=== PATIENT | female | born 1980 | race Caucasian/White ===

== ENCOUNTER 2016-09-21 01:46 | Emergency (ER) | payer MEDICAID, OTHER ==
[~2016-09-21] VITALS: Ht 162.6 cm; Wt 123.4 kg
[~2016-09-21 01:46] MED LIST: ACHD5005 PO; AMOX500C2 PO; ASPI-999 PO; BPR75T GT; BUPR100T6 PO; CALC-308 PO; DOCU100C37 PO; FLUO20CA25 PO; HCTZ12.5T PO; IBP800T PO; IBUP-1780 PO; LEVO750T24 PO; OXYC-202 PO; OXYC-465 PO; PREN-148 PO
[2016-09-21] MEDS ORDERED: FLUO40CA PO (01:57)
--- NOTE | 2016-09-21 02:18 | ED General ---
General Chief Complaint: General Problems/Pain Stated Complaint: SHOULDER PAIN VOMITING SORE THROAT Nursing Triage Note: BACK PAIN RADIATING TO JAW, VOMITTING X2 Nursing Sepsis Screen: No Definite Risk Source of Information: Patient History of Present Illness Time Seen by Provider: 01:58 Initial Comments PT ARRIVES VIA POV FROM HOME STATES WOKE UP AT MIDNIGHT WITH PAIN IN HER BACK, BETWEEN HER SHOULDER BLADES. STATES PAIN WOKE HER UP PAIN WAS 6/10 AT WORST, AND NOW IS 3/10, BUT IS CONSTANT STATES SHE HAS VOMITED X 2-ONE RIGHT AFTER THE OTHER, NO NAUSEA NOW PAIN IS NOW ALSO IN RIGHT LATERAL NECK AREA SINCE SHE VOMITED STATES SHE WAS SHORT OF BREATH AFTER SHE VOMITED, BUT NOT NOW STATES HER HEART FELT LIKE IT WAS RACING, BUT NOT NOW STATES SHE HAD BURNING IN HER THROAT AFTER SHE VOMITED BUT NOT NOW SYMPTOMS WORSE WHEN LAYING FLAT, NOTHING IMPROVES PAIN HAS NOT TAKEN ANYTHING FOR PAIN NO FEVER NO COUGH NO SWELLING IN LEGS/ FEET OR PAIN IN CALVES NO CHEST PAIN NO ABDOMINAL PAIN NO URINARY SYMPTOMS LMP 09/15/09/28--NORMAL . S/P BTL STATES ON WEDNESDAY SHE DID HAVE GI ILLNESS WITH FEVER AND NAUSEA/VOMITING, THAT LASTED 24 HOURS AND HAS BEEN FINE SINCE THEN FELT FINE ALL DAY TODAY AND WAS FINE WHEN SHE WENT TO BED NO HISTORY OF SIMILAR PCP: [facility], EMILY FONTAINE Allergies and Home Medications Allergies Coded Allergies: No Known Drug Allergies (Unverified , 01/30/15) Home Medications Fluoxetine HCl 40 Mg Capsule, 1 CAP PO UD, #30 (Reported) Constitutional: No chills, No diaphoresis, No dizziness, No fever EENTM: other (RIGHT JAW AND LATERAL NECK PAIN ), No throat pain Respiratory: see HPI, No cough, short of breath Cardiovascular: see HPI, No chest pain, No edema, palpitations, No syncope, No vascular heart diseas Gastrointestinal: see HPI, No abdominal pain, No constipation, No diarrhea, nausea, vomiting Genitourinary: no symptoms reported Musculoskeletal: see HPI, back pain, neck pain Skin: no symptoms reported Psychiatric/Neurological: No Symptoms Reported Hematologic/Lymphatic: No Symptoms Reported Immunological/Allergic: no symptoms reported Past Hakxruy-Lvabnh-Hfbrwp Hx Patient Social History Alcohol Use: Denies Use Recreational Drug Use: No Smoking Status: Current Everyday Smoker (1 PPD--TRYING TO QUIT-1 CIGARETTE A DAY FOR THE LAST WEEK, PER PT ON 09/21/16) Type Used: Cigarettes 2nd Hand Smoke Exposure: Yes Recent Foreign Travel: No Contact w/Someone Who Travel: No Recent Infectious Disease Expo: No Recent Hopitalizations: No Immunizations Up To Date Tetanus Booster (TDap): More than 5yrs PED Vaccines UTD: Yes Date of Influenza Vaccine: Mar 28, 2014 Seasonal Allergies Seasonal Allergies: No Surgeries HX Surgeries: Yes (POLYP REMOVED FROM UTERUS) Surgeries: Tubal Ligation Respiratory Hx Respiratory Disorders: No Cardiovascular Hx Cardiac Disorders: Yes Cardiac Disorders: Hypertension Neurological Hx Neurological Disorders: No Reproductive System : No Hx Reproductive Disorders: Yes (UTERINE MASS/polyp removal) Sexually Transmitted Disease: No HIV/AIDS: No Female Reproductive Disorders: Ovarian Cyst Genitourinary Hx Genitourinary Disorders: No Gastrointestinal Hx Gastrointestinal Disorders: Yes Gastrointestinal Disorders: Gastroesophageal Reflux Musculoskeletal Hx Musculoskeletal Disorders: No Endocrine Hx Endocrine Disorders: No HEENT HX ENT Disorders: No Loss of Vision: Bilateral Cancer Hx Cancer: No Psychosocial Hx Psychiatric Problems: Yes Behavioral Health Disorders: Anxiety, Depression Integumentary HX Skin/Integumentary Disorder: No Blood Transfusions Hx Blood Disorders: No Adverse Reaction to a Blood Tr: No Family Medical History Significant Family History: Renal Disease Family Medial History: FH: hepatic cirrhosis 19 MOTHER Hepatitis C 19 MOTHER Hypertension 19 MOTHER Physical Exam Vital Signs Vital Sign - Last 12Hours 09/21/16 01:57 Temp 97.0 Pulse 88 Resp 18 B/P (MAP) 158/111 Pulse Ox 97 O2 Delivery Room Air Capillary Refill : Less Than 3 Seconds General Appearance: No Apparent Distress, WD/WN, Obese HEENT: PERRL/EOMI Neck: Full Range of Motion, Normal Inspection, Non Tender, Supple, No Carotid Bruit, No JVD Respiratory: Chest Non Tender, Normal Breath Sounds, No Accessory Muscle Use, No Respiratory Distress Cardiovascular: Regular Rate, Rhythm, No Edema, No JVD, No Murmur, Normal Peripheral Pulses Gastrointestinal: Normal Bowel Sounds, No Organomegaly, No Pulsatile Mass, Non Tender, Soft Back: Normal Inspection, No CVA Tenderness, No Vertebral Tenderness Extremity: Normal Capillary Refill, Normal Inspection, Normal Range of Motion, Non Tender, No Calf Tenderness, No Pedal Edema Neurologic/Psychiatric: Alert, Oriented x3, No Motor/Sensory Deficits, Normal Mood/Affect, bottom turner II-XII Norm as Tested Skin: Normal Color, Warm/Dry, No Rash Progress/Results/Core Measures Results/Orders Lab Results Laboratory Tests Test 09/21/16 02:15 Range/Units White Blood Count 8.8 4.3-11.0 10^3/uL Red Blood Count 4.02 L 4.35-5.85 10^6/uL Hemoglobin 12.5 11.5-16.0 G/DL Hematocrit 37 35-52 % Mean Corpuscular Volume 91 80-99 FL Mean Corpuscular Hemoglobin 31 25-34 PG Mean Corpuscular Hemoglobin Concent 34 32-36 G/DL Red Cell Distribution Width 12.3 10.0-14.5 % Platelet Count 274 130-400 10^3/uL Mean Platelet Volume 9.8 7.4-10.4 FL Neutrophils (%) (Auto) 63 42-75 % Lymphocytes (%) (Auto) 30 12-44 % Monocytes (%) (Auto) 6 0-12 % Eosinophils (%) (Auto) 1 0-10 % Basophils (%) (Auto) 0 0-10 % Neutrophils # (Auto) 5.6 1.8-7.8 X 10^3 Lymphocytes # (Auto) 2.7 1.0-4.0 X 10^3 Monocytes # (Auto) 0.5 0.0-1.0 X 10^3 Eosinophils # (Auto) 0.1 0.0-0.3 10^3/uL Basophils # (Auto) 0.0 0.0-0.1 10^3/uL Prothrombin Time 12.1 L 12.2-14.7 SEC INR Comment 0.9 0.8-1.4 Activated Partial Thromboplast Time 28 24-35 SEC Sodium Level 139 135-145 MMOL/L Potassium Level 3.8 3.6-5.0 MMOL/L Chloride Level 106 98-107 MMOL/L Carbon Dioxide Level 23 21-32 MMOL/L Anion Gap 10 5-14 MMOL/L Blood Urea Nitrogen 9 7-18 MG/DL Creatinine 0.75 0.60-1.30 MG/DL Estimat Glomerular Filtration Rate > 60 BUN/Creatinine Ratio 12 Glucose Level 113 H 70-105 MG/DL Calcium Level 8.8 8.5-10.1 MG/DL Magnesium Level 1.9 1.8-2.4 MG/DL Total Bilirubin 0.2 0.1-1.0 MG/DL Aspartate Amino Transf (AST/SGOT) 26 5-34 U/L Alanine Aminotransferase (ALT/SGPT) 60 H 0-55 U/L Alkaline Phosphatase 46 40-136 U/L Total Creatine Kinase 76 29-168 U/L Creatine Kinase MB 0.9 <6.6 NG/ML Troponin I < 0.30 <0.30 NG/ML Total Protein 6.5 6.4-8.2 G/DL Albumin 3.7 3.2-4.5 G/DL Amylase Level 43 25-125 U/L Lipase 15 8-78 U/L Serum Test, Qualitative NEGATIVE NEGATIVE My Orders Orders - TIFFANY VILLAR DO Amylase (09/21/16 02:08) Cbc With Automated Diff (09/21/16 02:08) Comprehensive Metabolic Panel (09/21/16 02:08) Creatine Kinase (09/21/16 02:08) Creatine Kinase Mb (09/21/16 02:08) Lipase (09/21/16 02:08) Partial Thromboplastin Time (09/21/16 02:08) Protime With Inr (09/21/16 02:08) Troponin I (09/21/16 02:08) Chest 1 View, Ap/Pa Only (09/21/16 02:08) O2 (09/21/16 02:08) Ekg Tracing (09/21/16 02:08) BNP (09/21/16 02:08) Monitor-Rhythm Ecg Trace Only (09/21/16 02:08) Saline Lock/Iv-Start (09/21/16 02:08) Hcg,Qualitative Serum (09/21/16 02:08) Magnesium (09/21/16 02:08) Ketorolac Injection (Toradol Injection) (09/21/16 03:15) Famotidine Tablet (Pepcid Tablet) (09/21/16 03:15) Medications Given in ED Current Medications Medications Dose Ordered Sig/Daniela Route Start Time Stop Time Status Last Admin Dose Admin Famotidine 40 mg ONCE ONCE PO 09/21/16 03:15 09/21/16 03:16 DC 09/21/16 03:14 40 MG Vital Signs/I&O Vital Sign - Last 12Hours 09/21/16 01:57 Temp 97.0 Pulse 88 Resp 18 B/P (MAP) 158/111 Pulse Ox 97 O2 Delivery Room Air Blood Pressure Mean: 127 Progress Note : Progress Note PAIN RESOLVED ON IT'S OWN DURING ER STAY AND HAS NO SYMPTOMS OF ANY KIND PT NOW STATES IT FEELS LIKE WHEN SHE HAS HAD ACID REFLUX, BUT HAS NOT BEEN THIS BAD OR LASTED THIS LONG PT HAS PEPCID AT HOME, BUT HAS NOT TAKEN ANY FOR QUITE SOME TIME. ADVISED PT TO START TAKING DAILY PT FEELS COMFORTABLE GOING HOME, AND WANTS TO GO HOME. ECG Initial ECG Impression Time: 02:18 Initial ECG Rate: 74 Initial ECG Rhythm: Normal Sinus Initial ECG Comparisson: No Previous ECG Available Diagnostic Imaging Comments CXR--NO ACUTE PROCESS, PENDING RADIOLOGIST REVIEW Reviewed: Reviewed by Me Departure Impression Impression: Primary Impression: GERD (gastroesophageal reflux disease) Additional Impression: Mid back pain Disposition: 01 HOME, SELF-CARE Condition: Improved Departure-Patient Inst. Referrals: [facility] (PCP/Family) Primary Care Physician Patient Instructions: Acid Reflux (Gastroesophageal Reflux Disease), Adult (DC) , Upper Back Pain (DC) Add. Discharge Instructions: TAKE PEPCID DAILY ELEVATE HEAD OF BED 30-45 DEGREES FOLLOW UP WITH YOUR DR IN 1-2 DAYS FOR RECHECK RETURN TO ER IF WORSE All discharge instructions reviewed with patient and/or family. Voiced understanding. TIFFANY VILLAR DO Sep 21, 2016 02:17
[2016-09-21 02:24] LABS: BASOPHILS % (AUTO) 0 % (0-10); EOSINOPHILS # (AUTO) 0.1 10^3/uL (0.0-0.3); EOSINOPHILS % (AUTO) 1 % (0-10); LYMPHOCYTES # (AUTO) 2.7 X 10^3 (1.0-4.0); LYMPHOCYTES % (AUTO) 30 % (12-44); MEAN CORPUSCULAR HEMOGLOBIN 31 PG (25-34); MEAN CORPUSCULAR HGB CONC 34 G/DL (32-36); MEAN CORPUSCULAR VOLUME 91 FL (80-99); MEAN PLATELET VOLUME 9.8 FL (7.4-10.4); MONOCYTES # (AUTO) 0.5 X 10^3 (0.0-1.0); MONOCYTES % (AUTO) 6 % (0-12); NEUTROPHILS # (AUTO) 5.6 X 10^3 (1.8-7.8); NEUTROPHILS % (AUTO) 63 % (42-75); PLATELET COUNT 274 10^3/uL (130-400); RED BLOOD COUNT 4.02 10^6/uL (4.35-5.85); RED CELL DISTRIBUTION WIDTH 12.3 % (10.0-14.5); WHITE BLOOD COUNT 8.8 10^3/uL (4.3-11.0)
[2016-09-21 02:31] LABS: INR 0.9 (0.8-1.4); PROTHROMBIN TIME PATIENT 12.1 SEC (12.2-14.7)
[2016-09-21 02:43] LABS: ALANINE AMINOTRANSFERASE 60 U/L (0-55); ALBUMIN 3.7 G/DL (3.2-4.5); AMYLASE 43 U/L (25-125); ANION GAP 10 MMOL/L (5-14); ASPARTATE AMINO TRANSFERASE 26 U/L (5-34); BILIRUBIN,TOTAL 0.2 MG/DL (0.1-1.0); BLOOD UREA NITROGEN 9 MG/DL (7-18); BUN/CREATININE RATIO 12; CALCIUM 8.8 MG/DL (8.5-10.1); CARBON DIOXIDE 23 MMOL/L (21-32); CHLORIDE 106 MMOL/L (98-107); CREATINE KINASE 76 U/L (29-168); CREATININE SERUM 0.75 MG/DL (0.60-1.30); GFR ESTIMATED > 60; GLUCOSE 113 MG/DL (70-105); LIPASE 15 U/L (8-78); MAGNESIUM 1.9 MG/DL (1.8-2.4); POTASSIUM 3.8 MMOL/L (3.6-5.0); SODIUM 139 MMOL/L (135-145); TOTAL PROTEIN 6.5 G/DL (6.4-8.2)
[2016-09-21 02:49] LABS: TROPONIN I < 0.30 NG/ML (<0.30)
[2016-09-21] MEDS ORDERED: KETOROLAC 30 MG/ML VIAL IVP ONE (03:15)
[2016-09-21] MEDS ORDERED: FAMOTIDINE 20 MG (PEPCID) TABLET PO ONE (03:15)
[2016-09-21 03:24] VITALS: BP 137/101
[2016-09-21] MEDS ORDERED: cefTRIAXone INJECTION 1,000 MG in NS (IVPB) 50 ML IV SCH (04:30)
[2016-09-21] MEDS ORDERED: 1/2 NS IV SOLUTION 1,000 ML IV SCH (04:30)
[2016-09-21] MEDS ORDERED: inSUlin (REGULAR) HUMAN 1 UNIT/0.01 ML (CHARGE PER UNIT) SC SCH (06:00)
--- NOTE | 2016-09-21 06:45 | Diagnostic Imaging Report ---
INDICATION: Shoulder pain, vomiting, sore throat. FINDINGS: The lungs are clear. The heart and vessels normal. There is no effusion or pneumothorax. No free air beneath the diaphragms. IMPRESSION: Negative. Dictated by: Dictated on workstation # [id number]
== END 2016-09-21 03:19 | disposition home or self-care (01) ==
LOC: EDUNIT# 01:46 → ER 01:50
DX: K21.9 Gastro-esophageal reflux disease without esophagitis (principal); R11.10 Vomiting, unspecified; M54.9 Dorsalgia, unspecified; F17.210 Nicotine dependence, cigarettes, uncomplicated
CPT/HCPCS: 36415; 71010; 80053; 82150; 82550; 82553; 83690; 83735; 83880; 84484; 84703; 85025; 85610; 85730; 93005; 93041

== ENCOUNTER 2016-12-27 10:01 | Emergency (ER) | payer OTHER ==
[~2016-12-27] VITALS: Ht 162.6 cm; Wt 111.6 kg
[~2016-12-27 10:01] MED LIST changes: +FLUO40CA PO
--- NOTE | 2016-12-27 10:27 | ED Lower Extremity ---
General Stated Complaint: R FOOT INJ Source: patient, family Exam Limitations: no limitations History of Present Illness Time seen by provider: 10:25 Initial Comments This 36-year-old white female presents after sustaining an injury to her right foot when she tripped over a baby gate last evening. She complained of pain and swelling over the dorsum of her right forefoot. She denies loss of sensation or range of motion of the affected extremity. She has been limited in her weightbearing due to the injury. She denies other injury or accident. She denies previous significant injury to the right foot. The pain is severe and sharp. No abrasion or skin disruption occurred. Allergies and Home Medications Allergies Coded Allergies: No Known Drug Allergies (Unverified , 01/30/15) Home Medications Fluoxetine HCl 40 Mg Capsule, 1 CAP PO UD, #30 (Reported) Constitutional: No chills EENTM: no symptoms reported Respiratory: No cough Cardiovascular: No chest pain Gastrointestinal: No abdominal pain, No nausea, No vomiting Genitourinary: No dysuria, No frequency Musculoskeletal: No back pain, joint pain Skin: No change in color, No rash Psychiatric/Neurological: No Symptoms Reported Past Nrqvudc-Aaypyt-Jjrjvh Hx Patient Social History Type Used: Cigarettes 2nd Hand Smoke Exposure: Yes Recent Foreign Travel: No Contact w/Someone Who Travel: No Recent Hopitalizations: No Immunizations Up To Date Tetanus Booster (TDap): More than 5yrs PED Vaccines UTD: Yes Date of Influenza Vaccine: Mar 28, 2014 Seasonal Allergies Seasonal Allergies: No Surgeries HX Surgeries: Yes (POLYP REMOVED FROM UTERUS) Surgeries: Tubal Ligation Respiratory Hx Respiratory Disorders: No Cardiovascular Hx Cardiac Disorders: Yes Cardiac Disorders: Hypertension Neurological Hx Neurological Disorders: No Reproductive System Hx Reproductive Disorders: Yes (UTERINE MASS/polyp removal) Sexually Transmitted Disease: No HIV/AIDS: No Female Reproductive Disorders: Ovarian Cyst Genitourinary Hx Genitourinary Disorders: No Gastrointestinal Hx Gastrointestinal Disorders: Yes Gastrointestinal Disorders: Gastroesophageal Reflux Musculoskeletal Hx Musculoskeletal Disorders: No Endocrine Hx Endocrine Disorders: No HEENT HX ENT Disorders: No Loss of Vision: Bilateral Cancer Hx Cancer: No Psychosocial Hx Psychiatric Problems: Yes Behavioral Health Disorders: Anxiety, Depression Integumentary HX Skin/Integumentary Disorder: No Blood Transfusions Hx Blood Disorders: No Adverse Reaction to a Blood Tr: No Reviewed Nursing Assessment Reviewed/Agree w Nursing PMH: Yes Family Medical History Significant Family History: Renal Disease Family Medial History: FH: hepatic cirrhosis 19 MOTHER Hepatitis C 19 MOTHER Hypertension 19 MOTHER Physical Exam Vital Signs Vital Sign - Last 12Hours 12/27/16 10:27 Temp 98.8 Pulse 102 Resp 18 B/P (MAP) 173/106 Pulse Ox 98 O2 Delivery Room Air Capillary Refill : General Appearance: WD/WN, moderate distress HEENT: normal ENT inspection Neck: normal inspection Cardiovascular: regular rate, rhythm, no murmur Respiratory: lungs clear Gastrointestinal: soft Feet: right foot pain, right foot soft tissue tenderness, right foot swelling Neurologic/Tendon: normal sensation, normal motor functions, normal tendon functions Neurologic/Psychiatric: no motor/sensory deficits, alert, normal mood/affect Skin: normal color, warm/dry Progress/Results/Core Measures Results/Orders My Orders Orders - RIA ELIZABETH MD Hydrocodone/Apap 5/325 Tablet (Lortab 5 (12/27/16 10:30) Foot, Right, 3 View (12/27/16 10:24) Manjinder Bandage (12/27/16 11:07) Post-Op Shoe (12/27/16 11:07) Crutches (12/27/16 11:07) Medications Given in ED Current Medications Medications Dose Ordered Sig/Daniela Route Start Time Stop Time Status Last Admin Dose Admin Acetaminophen/ Hydrocodone Bitart 2 tab ONCE ONCE PO 12/27/16 10:30 12/27/16 10:31 DC 12/27/16 10:35 2 TAB Vital Signs/I&O Vital Sign - Last 12Hours 12/27/16 10:27 Temp 98.8 Pulse 102 Resp 18 B/P (MAP) 173/106 Pulse Ox 98 O2 Delivery Room Air Progress Note : Time: 11:16 Progress Note The patient's right foot x-ray failed to demonstrate evidence of fracture or dislocation. Patient was given 5 mg Vicodin orally in the emergency department with only moderate improvement in her discomfort. An Manjinder wrap and postoperative shoe was placed. Patient was given crutches initially for nonweightbearing. Departure Impression Impression: Primary Impression: Sprain and strain of foot Disposition: 01 HOME, SELF-CARE Condition: Improved Departure-Patient Inst. Decision time for Depature: 11:17 Referrals: J LUIS ASCENCIO MD (PCP/Family) Primary Care Physician Patient Instructions: Sprain (DC) Add. Discharge Instructions: Percocet for pain. Ice and elevation. Manjinder wrap postop shoe and crutches. Close follow-up with her doctor. Come back if any problems. RIA ELIZABETH MD Dec 27, 2016 10:27
[2016-12-27] MEDS ORDERED: HYDROcodone/APAP 5 MG/325 MG (LORTAB) TAB PO ONE (10:30)
--- NOTE | 2016-12-27 10:57 | Diagnostic Imaging Report ---
INDICATION: Foot pain and trauma COMPARISON: None FINDINGS: 3 views of the right foot demonstrate no fracture or dislocation. Articular surfaces are normal. There is no bony erosion or foreign body. IMPRESSION: Negative right foot. Dictated by: Dictated on workstation # [id number]
[2016-12-27 11:28] VITALS: BP 173/106
== END 2016-12-27 11:29 | disposition home or self-care (01) ==
LOC: EDUNIT# 10:01 → ER 10:02
DX: S93.601A Unspecified sprain of right foot, initial encounter (principal); S96.911A Strain of unspecified muscle and tendon at ankle and foot level, right foot, initial encounter; F41.9 Anxiety disorder, unspecified; F32.9 Major depressive disorder, single episode, unspecified; K21.9 Gastro-esophageal reflux disease without esophagitis; Z77.22 Contact with and (suspected) exposure to environmental tobacco smoke (acute) (chronic); W18.49XA Other slipping, tripping and stumbling without falling, initial encounter
CPT/HCPCS: 73630; 99283

== ENCOUNTER → 2018-11-21 | Outpatient (CLI) | payer BC, OTHER ==
[~2018-11-21] MED LIST changes: -OXYC-202 PO; +OXYC1TAB12 PO
--- NOTE | 2018-11-22 12:10 | Diagnostic Imaging Report ---
EXAMINATION: Digital mammogram bilateral screening with 3D tomosynthesis and CAD. INDICATION: Screening. COMPARISON: This is the patient's baseline study. PERSONAL HISTORY: At this time, there are no current complaints. FINDINGS: The fibroglandular tissue in both breasts is heterogeneously dense. This does limit the sensitivity of this exam. There is an area of asymmetric fibroglandular tissue in the 12 o'clock position of the right breast. On the xcc view of the left breast deep in the lateral aspect of the breast there appear to be a few microcalcifications. These calcifications are partially visualized on the MLO view. I do suspect that these calcifications are benign. Even so, as there are no previous exams available for comparison, I would recommend that a compression/magnification view of this area be obtained in the ML and CC projections for further study. There is no primary or secondary sign of malignancy noted otherwise. IMPRESSION: Additional mammographic views of the left breast would be recommended for further study. ACR BI-RADS Category 0: Incomplete. (Needs additional imaging evaluation). Result letter will be mailed to the patient. Note: At least 10% of breast cancer is not imaged by mammography. Dictated by: Dictated on workstation # [id number]
== END ==
LOC: RAD 08:03
PROVIDERS: ATTEND Obstetrics & Gynecology
DX: Z12.31 Encounter for screening mammogram for malignant neoplasm of breast (principal)
CPT/HCPCS: 77067

== ENCOUNTER 2020-10-17 06:31 | Day surgery (SDC) | payer BC ==
[~2020-10-17] VITALS: Ht 162 cm; Wt 131.8 kg
[2020-10-17] VITALS (11 sets, daily range): BP systolic 122–141; BP diastolic 68–102
[~2020-10-17 06:31] MED LIST changes: +ARIP5TAB12 PO; -OXYC-465 PO; +OXYC-556 PO; +PROP20TA5 PO; +SERT50TA2 PO
--- NOTE | 2020-10-17 07:01 | Progress Note-Pre Operative ---
Pre-Operative Progress Note H&P Reviewed The H&P was reviewed, patient examined and no changes noted. Date Seen by Provider: October 17, 2020 Time Seen by Provider: 06:30 Date H&P Reviewed: October 17, 2020 Time H&P Reviewed: 06:30 Pre-Operative Diagnosis: T/A Hyper with UAO, Bilat BETHANIE, Nasopseptal Perforation FER MIXON MD October 17, 2020 07:01
[2020-10-17] MEDS ORDERED: MIDAZOLAM 2 MG/2 ML (VERSED) VIAL ONE (07:03)
[2020-10-17] MEDS: LACTATED RINGERS 1,000 ML IV PRN ×2 (07:13→09:00)
[2020-10-17] MEDS ORDERED: MIDAZOLAM 2 MG/2 ML (VERSED) VIAL IV ONE (07:15)
[2020-10-17 07:16] LABS: BASOPHILS % (AUTO) 1 % (0-10); EOSINOPHILS # (AUTO) 0.2 10^3/uL (0.0-0.3); EOSINOPHILS % (AUTO) 3 % (0-10); HEMATOCRIT 40 % (35-52); HEMOGLOBIN 13.3 g/dL (11.5-16.0); LYMPHOCYTES # (AUTO) 2.6 10^3/uL (1.0-4.0); LYMPHOCYTES % (AUTO) 45 % (12-44); MEAN CORPUSCULAR HEMOGLOBIN 31 pg (25-34); MEAN CORPUSCULAR HGB CONC 33 g/dL (32-36); MEAN CORPUSCULAR VOLUME 94 fL (80-99); MEAN PLATELET VOLUME 10.4 fL (9.0-12.2); MONOCYTES # (AUTO) 0.3 10^3/uL (0.0-1.0); MONOCYTES % (AUTO) 5 % (0-12); NEUTROPHILS # (AUTO) 2.7 10^3/uL (1.8-7.8); NEUTROPHILS % (AUTO) 46 % (42-75); PLATELET COUNT 296 10^3/uL (130-400); WHITE BLOOD COUNT 5.8 10^3/uL (4.3-11.0)
[2020-10-17] MEDS ORDERED: LIDOCAINE PF 2% 5 ML (XYLOCAINE) VIAL ONE (07:21)
[2020-10-17] MEDS ORDERED: ONDANSETRON 4 MG/2 ML (SDV) Z0FRAN ONE (07:21)
[2020-10-17] MEDS ORDERED: ROCURONIUM 10 MG/ML 5 ML SYRINGE IV ONE (07:21)
[2020-10-17] MEDS ORDERED: proPOfol 200 MG/20 ML (DIPRIVAN) VIAL IV ONE (07:21)
[2020-10-17] MEDS ORDERED: LIDOCAINE/EPI 1%-1:100,000 (XYLOCAINE) 20ML ONE (07:22)
[2020-10-17] MEDS ORDERED: COCAINE HCL 4% 2 ML SYR ONE (07:22)
[2020-10-17] MEDS ORDERED: PHENYLEPHRINE 0.5% NASAL SPR (NEO-SYNEPHRINE) REG ONE (07:22)
[2020-10-17] MEDS ORDERED: fentaNYL INJ 100 MCG/2 ML AMP ONE ×2 (07:22→08:16)
[2020-10-17] MEDS ORDERED: BSS 15 ML ONE (07:23)
[2020-10-17] MEDS ORDERED: SEVOFLURANE (ULTANE) 15 ML INHAL SOLN ONE (07:24)
[2020-10-17 07:33] LABS: CHLORIDE 107 MMOL/L (98-107); POTASSIUM 4.5 MMOL/L (3.6-5.0); SODIUM 141 MMOL/L (135-145)
[2020-10-17 07:34] LABS: CALCIUM 9.1 MG/DL (8.5-10.1)
[2020-10-17 07:35] LABS: GLUCOSE 98 MG/DL (70-105)
[2020-10-17 07:36] LABS: CARBON DIOXIDE 24 MMOL/L (21-32)
[2020-10-17 07:38] LABS: CREATININE SERUM 0.84 MG/DL (0.60-1.30); GFR ESTIMATED > 60
[2020-10-17 07:39] LABS: BUN/CREATININE RATIO 13
[2020-10-17] MEDS ORDERED: NEOSTIGMINE 3 MG/3 ML VIAL ONE (07:47)
[2020-10-17] MEDS ORDERED: GLYCOPYRROLATE 0.2 MG/ML (ROBINUL) 2 ML VIAL ONE ×2 (07:47→08:25)
--- NOTE | 2020-10-17 08:44 | Progress Note-Post Operative ---
Post-Operative Progess Note Surgeon (s)/Guard Supervisor (s) Surgeon FER MIXON MD Guard Supervisor n/a Pre-Operative Diagnosis T/A Hyper with UAO, Bilat BETHANIE, Nasopseptal Perforation Post-Operative Diagnosis same Post-Op Procedure Note Date of Procedure: October 17, 2020 Name of Procedure Performed: Tonsillectomy, BMT, Endoscopic Biopsy of Septal Perforation Description & Findings Description and Findings: n/a Anesthesia Type get Estimated Blood Loss minimal Packing none. Specimen(s) collected/removed naso septal biopsies tonsils FER MIXON MD October 17, 2020 08:44
[2020-10-17] MEDS ORDERED: HYDROcodone/APAP 7.5MG-325 MG/15 ML (LORTAB) UDC PO PRN (08:45)
[2020-10-17] MEDS ORDERED: NS IV 1000 ML 1,000 ML IV SCH (08:45)
[2020-10-17] MEDS ORDERED: APAP 325 MG/10.15 ML LIQ (TYLENOL) UDC PO PRN (08:45)
--- NOTE | 2020-10-17 08:50 | Anesthesia-General Post-Op ---
General Patient Condition Mental Status/LOC: Same as Preop Cardiovascular: Satisfactory Nausea/Vomiting: Absent Respiratory: Satisfactory Pain: Controlled Complications: Absent Post Op Complications Complications None Follow Up Care/Instructions Patient Instructions None needed. Anesthesia/Patient Condition Patient Condition Patient is doing well, no complaints, stable vital signs, no apparent adverse anesthesia problems. No complications reported per nursing. AFSHIN WOLFF CRNA October 17, 2020 08:50
[2020-10-17] MEDS ORDERED: morphine INJ 10 MG/ML 1ML (SYR OR VIAL) IVP ONE (09:00)
[2020-10-17] MEDS ORDERED: MEPERIDINE (DEMEROL) INJ 50 MG/ML IVP ONE (09:00)
[2020-10-17] MEDS ORDERED: ONDANSETRON 4 MG/2 ML (SDV) Z0FRAN IVP PRN (09:00)
[2020-10-17] MEDS ORDERED: AMOX250S5 PO (09:43)
[2020-10-17] MEDS ORDERED: DEXAINTSOL PO (09:43)
[2020-10-17] MEDS ORDERED: TETRACAINESUCKERS MT (09:43)
[2020-10-17] MEDS ORDERED: HYDR15SO8 PO (09:43)
[2020-10-17] MEDS ORDERED: OFLO5DRO33 EACH EAR (09:43)
== END 2020-10-17 11:30 | disposition home or self-care (01) ==
LOC: SDC 06:31
PROVIDERS: ATTEND Otolaryngology Otolaryngology/Facial Plastic Surgery
DX: J35.1 Hypertrophy of tonsils (principal); J98.8 Other specified respiratory disorders; J34.89 Other specified disorders of nose and nasal sinuses; H66.93 Otitis media, unspecified, bilateral; I10 Essential (primary) hypertension; F41.9 Anxiety disorder, unspecified; F32.9 Major depressive disorder, single episode, unspecified; K21.9 Gastro-esophageal reflux disease without esophagitis; Z79.899 Other long term (current) drug therapy
CPT/HCPCS: 36415; 80048; 84703; 85025; 87081; 88304; 88305